=== PATIENT | male | born 1995 | race Caucasian/White ===

== ENCOUNTER 2017-08-24 15:17 | Emergency (ER) | payer OTHER, MEDICAID ==
[2017-08-24 15:50] VITALS: BMI 25.6
[2017-08-24 16:37] VITALS: RESP 18; TEMP 98.8
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
[2017-08-24 19:30] VITALS: BP 141/76; PULSE 72; O2SAT 99
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
== END 2017-08-24 19:30 | disposition home or self-care (01) ==
LOC: ED 15:17
DX: M54.5 Low back pain (principal)